=== PATIENT | female | born 1995 | race Hispanic/Latino ===

== ENCOUNTER 2017-12-13 10:52 | Day surgery (SDC) | payer SELFPAY ==
[2017-12-13] MEDS ORDERED: NA CHLORIDE 0.9% 1,000 ML ONE (11:29)
[2017-12-13] MEDS ORDERED: ONDANSETRON 4 MG/2 ML VIAL ONE ×2 (11:29→16:05)
[2017-12-13] MEDS ORDERED: MORPHINE 4 MG/ML SYR ONE (11:29)
[2017-12-13 11:55] LABS: Urine Blood TRACE (NEG); Urine Glucose NEGATIVE (NEG); Urine Protein TRACE (NEG); Urine Specific Gravity 1.025 (1.005-1.030)
[2017-12-13 12:09] LABS: Absolute Lymphocytes (CBC) 1.3 K/uL (0.7-4.9); Absolute Monocytes 0.8 K/uL (0.1-1.3); Absolute Neutrophil 16.6 K/uL (1.8-8.0); Basophils % 0.1 % (0-1.3); Eosinophils % 0.1 % (0-4.4); Hematocrit 41.5 % (36.0-45.0); Lymphocytes % 7.1 % (15.3-44.8); MCH 30.5 pg (27.0-35.0); MCV 88.3 fL (80-100); MPV 8.4 fL (7.6-11.3); Monocytes % 4.1 % (3.3-12.3)
[2017-12-13] MEDS ORDERED: METOCLOPRAMIDE 10 MG/2mL INJ ONE (12:18)
[2017-12-13 12:20] LABS: ALT/SGPT 29 U/L (12-78); AST/SGOT 16 U/L (15-37); Albumin 3.9 g/dL (3.4-5.0); Alkaline Phosphatase 75 U/L (45-117); BUN Blood Urea Nitrogen 12 mg/dL (7-18); Bicarbonate 22 mmol/L (21-32); Bilirubin Direct < 0.1 mg/dL (0-0.2); Bilirubin Total 0.4 mg/dL (0.2-1.0); Glucose Level 137 mg/dL (74-106); Lipase 124 U/L (73-393); Potassium 4.1 mmol/L (3.5-5.1); Protein, Total 8.1 g/dL (6.4-8.2); Sodium Level 139 mmol/L (136-145)
[2017-12-13 12:43] LABS: Blood Morphology Comment NOTED (NOT SEEN); Platelet Estimate ADEQ; Urine White Blood Cell Casts OK
[2017-12-13 12:44] LABS: Hypochromasia 1+; Stomatocytes 1+
--- NOTE | 2017-12-13 13:42 | RAD REPORT ---
EXAM DESCRIPTION: CT - Abdomen Pelvis W Contrast - 12/13/2017 1:17 pm CLINICAL HISTORY: Right lower quadrant pain and tenderness COMPARISON: None. TECHNIQUE: Biphasic, helical CT imaging of the abdomen and pelvis was performed following 100 ml non -ionic IV contrast. Oral contrast was given. All CT scans are performed using dose optimization technique as appropriate and may include automated exposure control or mA/KV adjustment according to patient size. FINDINGS: No suspicious findings in the lung bases. The liver, spleen, and pancreas show no suspicious findings. Gallbladder and biliary tree are also wi thout suspicious finding. Symmetric renal function is seen with no hydronephrosis or suspicious renal mass. No pyelonephritis o r acute renal parenchymal process. No urinary bladder abnormality. Uterus is normal in size and has an arcuate or less likely bicornuate configuration. Both ovaries are identified and normal. No fallopian tube dilatation. Trace free fluid in the cul-de-sac well within physiologic limits. No gastric dilatation or wall thickening. No dilated small bowel or focal small bowel abnormality. No colon acute finding. Sigmoid is redundant. The appendix is upper normal to minimally enlarged at 7-9 mm in diameter. There is no air within the lumen of the appendix which courses towards the posterior midline pelvis. No surrounding inflammatory stranding. Findings are equivocal for a very early appendicitis given the right lower quadrant histo ry. Patient has a few clustered mesenteric lymph nodes in the right lower quadrant. No free air or pneumatosis. No focal inflammatory stranding seen. No hernia, mass or bulky lymphad enopathy. No adrenal abnormality. No suspicious bony findings. IMPRESSION: The appendix is 7-9 mm in size and is minimally edematous. There is no surrounding infla mmatory stranding. Findings are equivocal for early appendicitis. Uterus and ovaries show no acute findings. No pyelonephritis or acute finding. No other abnormalit y seen that might explain a right lower quadrant pain pattern.
--- NOTE | 2017-12-13 14:00 | EDPHYS ---
Physician Documentation [facility] Name: Vonnie Porter Age: 22 yrs Sex: Female : 1995 Arrival Date: 12/13/2017 Time: 10:55 Bed 20 Private MD: ED Physician Tavon Grijalva HPI: 12/13 11:17 This 22 yrs old Female presents to ER via Wheelchair with complaints of jmm Abdominal Pain, Vomiting. 11:17 The patient presents with abdominal pain in the lower abdomen. Onset: The jmm symptoms/episode began/occurred acutely, this morning. The symptoms do not radiate. Associated signs and symptoms: Pertinent positives: vomiting. Modifying factors: The symptoms are alleviated by nothing, the symptoms are aggravated by. This is a 22 year old female with no chronic medical conditions that presents to the ED with lower abdominal pain with vomiting. LMP last week. Patient denies diarrhea, recent abx use, recent travel, or infectious exposure. . 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 - Social history:: Smoking status: Patient/guardian denies using tobacco. - Ebola Screening: : Patient negative for fever greater than or equal to 101.5 degrees Fahrenheit, and additional compatible Ebola Virus Disease symptoms Patient denies exposure to infectious person Patient denies travel to an Ebola-affected area in the 21 days before illness onset No symptoms or risks identified at this time. ROS: 12:01 Constitutional: Negative for fever, chills, and weight loss, Cardiovascular: Negative jmm for chest pain, palpitations, and edema, Respiratory: Negative for shortness of breath, cough, wheezing, and pleuritic chest pain. 12:01 Abdomen/GI: Positive for abdominal pain. 12:01 All other systems are negative. Exam: 12:01 Head/Face: atraumatic. Chest/axilla: Normal chest wall appearance and motion. jmm Cardiovascular: Regular rate and rhythm. No edema appreciated Respiratory: Normal respirations, no respiratory distress appreciated 12:01 Constitutional: The patient appears alert, awake, anxious, uncomfortable. 12:01 Abdomen/GI: Inspection: Bowel sounds: normal, Palpation: soft, mild abdominal tenderness, in the right lower quadrant and left lower quadrant. 12:01 Back: ROM is normal. 12:01 Skin: Appearance: Color: normal in color. 12:01 Neuro: Orientation: is normal, Mentation: is normal, Memory: is normal. 12:01 Psych: Behavior/mood is pleasant, cooperative. Vital Signs: 11:05 BP 126 / 62; Pulse 79; Resp 18; Temp 97.2; Pulse Ox 100% on R/A; Weight 61.23 kg; aj Height 5 ft. 1 in. (154.94 cm); 12:41 BP 136 / 95; Pulse 81; Resp 18; Pulse Ox 99% on R/A; jb1 13:40 BP 133 / 84; Pulse 68; Resp 18; Pulse Ox 100% on R/A; Pain 4/10; em 11:05 Body Mass Index 25.51 (61.23 kg, 154.94 cm) aj MDM: 11:17 Patient medically screened. [facility] 13:58 Data reviewed: vital signs, nurses notes. Counseling: I had a detailed discussion with brian the patient and/or guardian regarding: the historical points, exam findings, and any diagnostic results supporting the discharge/admit diagnosis, lab results, radiology results, the need for further work-up and treatment in the hospital. ED course: I discussed the patient with Dr. Alvarez whom will see the patient in the ED. 12/13 11:18 Order name: Basic Metabolic Panel; Complete Time: 12:34 [facility] 12/13 11:18 Order name: CBC with Diff; Complete Time: 12:46 [facility] 12/13 11:18 Order name: Creatinine for Radiology; Complete Time: 12:34 [facility] 12/13 11:18 Order name: Hepatic Function; Complete Time: 12:34 [facility] 12/13 11:18 Order name: Lipase; Complete Time: 12:34 [facility] 12/13 11:28 Order name: Urine Dipstick--Ancillary (enter results); Complete Time: 12:02 12/13 11:28 Order name: Urine --Ancillary (enter results); Complete Time: 12:02 12/13 12:11 Order name: CBC Smear Scan; Complete Time: 12:46 [facility] 12/13 12:54 Order name: CT Abd/Pelvis - W/Contrast; Complete Time: 13:45 [facility] 12/13 11:18 Order name: IV Saline Lock; Complete Time: 11:29 [facility] 12/13 11:18 Order name: Labs collected and sent; Complete Time: 11:29 [facility] 12/13 11:19 Order name: Urine Test (obtain specimen); Complete Time: 11:28 [facility] 12/13 11:20 Order name: Urine Dipstick-Ancillary (obtain specimen); Complete Time: 11:28 [facility] Administered Medications: 11:48 Drug: morphine 4 mg Route: IVP; Site: right antecubital; iw 12:17 Follow up: Response: No adverse reaction; Pain is decreased em 11:48 Drug: Zofran 4 mg Route: IVP; Site: right antecubital; iw 12:17 Follow up: Response: No adverse reaction; Nausea unchanged em 11:49 Drug: NS 0.9% 1000 ml Route: IV; Rate: 1000 ml; Site: right antecubital; iw 12:30 Follow up: IV Status: Completed infusion; IV Intake: 1000ml em 12:28 Drug: Reglan 10 mg Route: IVP; Site: right antecubital; iw 14:03 Follow up: Response: No adverse reaction; Nausea is decreased em 14:13 Drug: Ciprofloxacin 400 mg Volume: 200 ml; Route: IVPB; Infused Over: 60 mins; Site: em right antecubital; 14:13 Follow up: IV Status: Infusion continued upon admission em 14:13 Drug: Flagyl 500 mg Volume: 100 ml; Route: IVPB; Rate: 200 ml/hr; Infused Over: 30 em mins; Site: right antecubital; 14:13 Follow up: IV Status: Infusion continued upon admission em Disposition: 12/14 13:08 Co-signature as Attending Physician, Tavon Grijalva MD I agree with the assessment and kdr plan of care. Disposition: 12/13/17 13:59 Hospitalization ordered by Trent Alvarez for Observation. Preliminary diagnosis is Acute appendicitis. - Bed requested for DAY SURGERY OTHER. - Status is Observation. em - Condition is Stable. - Problem is new. - Symptoms are unchanged. UTI on Admission? No Signatures: Dispatcher [employer] Junie Diane RN RN aj Rittger, Kevin, MD MD [facility] Mickail, Choco, PA PA [facility] Naeem Ely, [employer] em Esther Mujica, RN RN iw Candace Arias Corrections: (The following items were deleted from the chart) 12/13 14:04 13:59 Hospitalization Ordered by rTent Alvarez MD for Observation. Preliminary diagnosis eb is Acute appendicitis. Bed requested for DAY SURGERY OTHER. Status is Observation. Condition is Stable. Problem is new. Symptoms are unchanged. UTI on Admission? No. [facility] 14:16 14:04 12/13/2017 13:59 Hospitalization Ordered by Trent Alvarez MD for Observation. em Preliminary diagnosis is Acute appendicitis. Bed requested for DAY SURGERY OTHER. Status is Observation. Condition is Stable. Problem is new. Symptoms are unchanged. UTI on Admission? No. eb
--- NOTE | 2017-12-13 14:00 | ER ---
Nurse's Notes [facility] Name: Vonnie Porter Age: 22 yrs Sex: Female : 1995 Arrival Date: 12/13/2017 Time: 10:55 Bed 20 Private MD: Diagnosis: Acute appendicitis Presentation: 12/13 11:04 Presenting complaint: Patient states: Abdominal pain that started suddenly this AM with aj nausea and vomiting. Patient reports tenderness to RLQ with palpation. Transition of care: patient was not received from another setting of care. Onset of symptoms was December 13, 2017. Risk Assessment: Do you want to hurt yourself or someone else? Patient reports no desire to harm self or others. Initial Sepsis Screen: Does the patient meet any 2 criteria? No. Patient's initial sepsis screen is negative. Does the patient have a suspected source of infection? No. Patient's initial sepsis screen is negative. Care prior to arrival: None. 11:04 Method Of Arrival: Wheelchair 11:04 Acuity: HECTOR 3 aj Triage Assessment: 11:05 General: Appears in no apparent distress. uncomfortable, Behavior is anxious, crying. aj Pain: Complains of pain in right lower quadrant. Neuro: Level of Consciousness is awake, alert, obeys commands, Oriented to person, place, time, situation, Appropriate for age. Respiratory: Airway is patent Respiratory effort is even, unlabored, Respiratory pattern is hyperventilation. GI: Abdomen is flat, non-distended, Reports lower abdominal pain, nausea, vomiting. Derm: Skin is intact, is healthy with good turgor, Skin is pink, warm \T\ dry. normal. 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 - Social history:: Smoking status: Patient/guardian denies using tobacco. - Ebola Screening: : Patient negative for fever greater than or equal to 101.5 degrees Fahrenheit, and additional compatible Ebola Virus Disease symptoms Patient denies exposure to infectious person Patient denies travel to an Ebola-affected area in the 21 days before illness onset No symptoms or risks identified at this time. Screenin:30 Abuse screen: Denies threats or abuse. Nutritional screening: No deficits noted. em Tuberculosis screening: No symptoms or risk factors identified. Fall Risk None identified. Assessment: 11:30 General: Appears in no apparent distress. uncomfortable, Behavior is cooperative, em crying, Denies fever. Pain: Complains of pain in left lower quadrant and right lower quadrant Pain currently is 8 out of 10 on a pain scale. Neuro: Level of Consciousness is awake, alert, obeys commands, Oriented to person, place, time, situation. Cardiovascular: Capillary refill < 3 seconds Patient's skin is warm and dry. Respiratory: Airway is patent Respiratory effort is even, unlabored, Respiratory pattern is regular, symmetrical. GI: Abdomen is flat, Bowel sounds present X 4 quads. Abd is soft X 4 quads Abdomen is tender to palpation in right lower quadrant and left lower quadrant Reports nausea, vomiting, Patient currently denies diarrhea. : Urine is clear, Denies burning with urination. EENT: No signs and/or symptoms were reported regarding the EENT system. Derm: Skin is intact, Skin is pink, warm \T\ dry. Musculoskeletal: Range of motion: intact in all extremities. 11:45 General: The previous assessment is accurate, call light remains within reach. . ss 12:15 Reassessment: Patient appears in no apparent distress at this time. Patient and/or em family updated on plan of care and expected duration. Pain level reassessed. Patient is alert, oriented x 3, equal unlabored respirations, skin warm/dry/pink. rates pain 4/10, c/o nausea, provider notified Patient states feeling better. 12:53 Reassessment: Patient appears in no apparent distress at this time. Patient and/or em family updated on plan of care and expected duration. Pain level reassessed. Patient is alert, oriented x 3, equal unlabored respirations, skin warm/dry/pink. nausea improved Patient states feeling better. Patient states symptoms have improved. 13:10 Reassessment: Patient appears in no apparent distress at this time. Patient and/or em family updated on plan of care and expected duration. Pain level reassessed. Patient is alert, oriented x 3, equal unlabored respirations, skin warm/dry/pink. pt wheeled to CT via wheelchair. 14:15 Reassessment: Patient appears in no apparent distress at this time. Patient and/or em family updated on plan of care and expected duration. Pain level reassessed. Patient is alert, oriented x 3, equal unlabored respirations, skin warm/dry/pink. Patient states feeling better. Vital Signs: 11:05 BP 126 / 62; Pulse 79; Resp 18; Temp 97.2; Pulse Ox 100% on R/A; Weight 61.23 kg; aj Height 5 ft. 1 in. (154.94 cm); 12:41 BP 136 / 95; Pulse 81; Resp 18; Pulse Ox 99% on R/A; jb1 13:40 BP 133 / 84; Pulse 68; Resp 18; Pulse Ox 100% on R/A; Pain 4/10; em 11:05 Body Mass Index 25.51 (61.23 kg, 154.94 cm) aj ED Course: 10:55 Patient arrived in ED. rg4 11:04 Triage completed. aj 11:05 Arm band placed on right wrist. Patient placed in an exam room. aj 11:10 Choco Hayes PA is PHCP. jm 11:10 Tavon Grijalva MD is Attending Physician. jmm 11:10 Naeem Ely LVN is Primary Nurse. em 11:30 Patient has correct armband on for positive identification. Placed in gown. Bed in low em position. Call light in reach. Adult w/ patient. 11:30 No provider procedures requiring assistance completed. Initial lab(s) drawn, by me, em sent to lab. Inserted saline lock: 20 gauge in right antecubital area, using aseptic technique. Blood collected. 13:15 CT completed. Patient tolerated procedure well. Patient moved to CT via wheelchair. vr Patient moved back from CT. 13:17 CT Abd/Pelvis - W/Contrast In Process Unspecified. EDMS 13:59 Trent Alvarez MD is Hospitalizing Provider. jmm 14:15 IV discontinued, intact, bleeding controlled, No redness/swelling at site. Pressure em dressing applied. Administered Medications: 11:48 Drug: morphine 4 mg Route: IVP; Site: right antecubital; iw 12:17 Follow up: Response: No adverse reaction; Pain is decreased em 11:48 Drug: Zofran 4 mg Route: IVP; Site: right antecubital; iw 12:17 Follow up: Response: No adverse reaction; Nausea unchanged em 11:49 Drug: NS 0.9% 1000 ml Route: IV; Rate: 1000 ml; Site: right antecubital; iw 12:30 Follow up: IV Status: Completed infusion; IV Intake: 1000ml em 12:28 Drug: Reglan 10 mg Route: IVP; Site: right antecubital; iw 14:03 Follow up: Response: No adverse reaction; Nausea is decreased em 14:13 Drug: Ciprofloxacin 400 mg Volume: 200 ml; Route: IVPB; Infused Over: 60 mins; Site: em right antecubital; 14:13 Follow up: IV Status: Infusion continued upon admission em 14:13 Drug: Flagyl 500 mg Volume: 100 ml; Route: IVPB; Rate: 200 ml/hr; Infused Over: 30 em mins; Site: right antecubital; 14:13 Follow up: IV Status: Infusion continued upon admission em Intake: 12:30 IV: 1000ml; Total: 1000ml. em Outcome: 13:59 Decision to Hospitalize by Provider. jmm 14:15 Admitted to OR accompanied by nurse, via stretcher, with chart. em 14:15 Condition: good 14:15 Instructed on the need for admit, Demonstrated understanding of instructions. 14:16 Patient left the ED. em Signatures: Dispatcher [employer] Doroteo Elizondo jb1 Junie Medina, RN Choco Louis PA PA jmm Munoz, Edgar, PROTOTYPE SEWER PROTOTYPE SEWER em Esther Mujica RN RN iw Smirch, Shelby, RN RN ss Davis, Victoria vr Garcia, Rubi 4
[2017-12-13] MEDS ORDERED: Ciprofloxacin 200mg IV 200 MG/100 ML IV.SOLN. IV ONE (14:12)
[2017-12-13] MEDS ORDERED: METRONIDAZOLE 500mg IVPB 500 MG/100 ML BAG IV ONE (14:13)
[2017-12-13] MEDS ORDERED: Ringers Lactate 1,000 ML IV ONE ×2 (14:19→15:54)
[2017-12-13] MEDS ORDERED: PROPOFOL 200 MG/20 ML VIAL IV ONE (14:37)
[2017-12-13] MEDS ORDERED: MIDAZOLAM HCL 2 MG/2 ML INJ ONE (14:37)
[2017-12-13] MEDS ORDERED: ROCURONIUM 50 MG/5 ML VIAL IV ONE (14:37)
[2017-12-13] MEDS ORDERED: LIDOCAINE 2% MPF 5 ML VIAL ONE (14:37)
[2017-12-13] MEDS ORDERED: FENTANYL CITR 100 MCG/2 ML ONE ×2 (14:37→15:07)
[2017-12-13] MEDS ORDERED: BUPIVACA 0.5%/EPI 0.0005%/PF 30 ML VIAL ONE (14:38)
[2017-12-13] MEDS ORDERED: SUCCINYLCHOLINE 20 MG/ML (10 ML) IV ONE (14:48)
[2017-12-13] MEDS ORDERED: GLYCOPYRROLATE 0.2 MG/ML SYR ONE (14:52)
--- NOTE | 2017-12-13 15:32 | P.OP ---
Preoperative diagnosis: Acute Appendicitis Postoperative diagnosis: Acute Appendicitis Primary procedure: Laparoscopic Appendectomy Anesthesia: GETA + Local Estimated blood loss: <10cc Specimen: Vermiform Appendix Findings: Acute Non-Perforated Appendicitis Complications: None Transferred to: Recovery Room Condition: Good
[2017-12-13] MEDS: MEPERIDINE HCL 50 MG/ML AMP ONE ×2 (15:59→16:03)
[2017-12-13] MEDS ORDERED: HYDROCODONE/APAP 5/325 MG TAB ONE (16:38)
--- NOTE | 2017-12-14 01:38 | HP ---
Date of Admission: 12/13/2017 Brief Hpi: The patient is a 22-year-old female who presents to the hospital with approximately 1-day history of abdominal pain in the periumbilical, now right lower quadrant area. She states the pain is sharp stabbing in the right lower quadrant predominantly. She has not had similar episodes before in the past. No sick contacts. No recent travel. No new food exposures, exacerbated by movement a nd pressure. Past Medical History: Negative. Past Surgical History: Negative. Allergies: NO KNOWN DRUG ALLERGIES. Medications: None. Social History: She denies smoking, recreational drug use. She does drink alcohol on occasion. Review of Systems: A 10-point review of systems other than HPI, denies. Physical Examination: General: At the time of my examination, she is awake, alert, and oriented. Psychiatric: She is appropriate, conversive. HEENT: She is normocephalic. Sclerae anicteric. Mucous membranes are moist. Oropharynx is clear. Neck: Supple. No JVD. Chest: Normal expansion, excursion. Cardiovascular: Regular rate and rhythm. Pulmonary: Clear to auscultation bilaterally. Abdomen: Soft with positive right lower quadrant tenderness to palpation. There is some focal perit onitis in this area. No hernias appreciated. Extremities: No clubbing, cyanosis, or edema. Skin: Warm and dry. Laboratory Data: Laboratory exam reveals a white blood count of 18.7, hemoglobin is 14.4, hematocrit of 41.5, platelet count is 410, and neutrophils 88.6%. Her sodium is 139, potassium 4.1, chloride 1 07, carbon dioxide 22, BUN 12, creatinine 0.8, glucose is 137, total bilirubin 0.4, AST 16, ALT 29, a lk phos 75, lipase is 124. UA is 2+ ketones only and trace blood. Negative urine test. S he had a CT scan performed of the abdomen and pelvis, officially read by Dr. Loco as the appendix is 7 to 9 mm in size, is minimally edematous. There is no surrounding inflammatory stranding. Findi ngs are equivocal for early appendicitis. Uterus and ovaries show no acute findings. No other abnor mality that might explain the right lower quadrant pain. Assessment And Plan: This is a 22-year-old female, who comes in with signs and symptoms consistent w ith early acute appendicitis. 1.IV fluid hydration. 2.Antibiotic coverage. 3.I have explained the risks, benefits, and alternatives of laparoscopic, possible open appendectomy including, but not limited to bleeding, infection, damage to surrounding tissue, need for further op erating procedures. The patient agrees to proceed as indicated. DC/BRIONNA Voice ID: [id number]
--- NOTE | 2017-12-14 02:46 | OP ---
Date of Procedure: 12/13/2017 Surgeon: Trent Alvarez MD, Preoperative Diagnosis: Acute appendicitis. Postoperative Diagnosis: Acute appendicitis. Procedure Performed: Laparoscopic appendectomy. Anesthesia: General endotracheal plus local with 0.5% Marcaine without epinephrine. Estimated Blood Loss: Less than 2 cc. Specimen: Vermiform appendix. Findings: Acute nonperforated appendicitis. Complications: None. Disposition: Transferred to recovery room in good condition. Procedure In Detail: After informed consent was obtained, patient was brought to the operating room, prepped and draped in usual sterile fashion. After adequate anesthesia was achieved, an infraumbili chandler area was anesthetized with 0.25% Marcaine, sharply incised, and a 5-mm trocar was introduced in t he abdomen without evidence of complication. Insufflation was obtained 15 mmHg at this time and the area was inspected. There was no injury to vital structures upon entry into the abdomen. The additi onal trocar site was chosen in the suprapubic region. This was similarly anesthetized, sharply incis ed. A 5-mm trocar was introduced into the abdomen without evidence of complication. The umbilical t rocar was then up-sized to 12 mm under direct visualization without evidence of complication. Additi onal trocar site was chosen in the left lower quadrant. This was similarly anesthetized, sharply inc ised, and a 5-mm trocar was introduced into the abdomen without evidence of complication. The patien t was then positioned in the head up right-side up position. Ratcheted grasper was used to identify the appendix in the right lower quadrant. The appendix was grasped, elevated, and found to be consis tent with acute appendicitis. A mesoappendiceal window was created with the [place] retractor. End o JOSSIE 35 blue load fired across the base of the appendix with good approximation of the tissues. The LigaSure device was then used to take the mesoappendix down with good approximation of the tissues a nd no additional need for hemostatic maneuvers. The appendix was placed in the EndoCatch bag and rem mukesh with the umbilical trocar. Insufflation obtained at this time. The area was inspected. The st aple line was found to be in good anatomic position. There was no bleeding from any structures. The abdomen was then copiously irrigated and dried including the pelvic structures which were found to b e in good anatomic position as well without any significant free fluid. The patient was then positio inderjit in a neutral position. The umbilical trocar was removed and the umbilical trocar site closed usi ng a [place]-Mel suture passer with 0 Vicryl in interrupted fashion with good approximation of ti ssues. The abdomen was then completely desufflated under direct visualization without evidence of co mplication. All trocars were then removed. All skin incisions were copiously irrigated and closed w ith 4-0 Monocryl in a running fashion and Dermabond placed over top. The patient tolerated the proce dure well without evidence of complication and was transferred to the PACU in good condition. All co unts were correct at the end of the case. DC/BRIONNA Voice ID: [id number] Report ID: [id number]
== END 2017-12-13 17:30 | disposition home or self-care (01) ==
LOC: ER 10:52 → OR 13:57
PROVIDERS: ATTEND Surgery
PROC: 0DTJ4ZZ Resection of Appendix, Percutaneous Endoscopic Approach (ICD-10-PCS; principal; 2017-12-13 14:00)
DX: K35.80 Unspecified acute appendicitis (principal)
CPT/HCPCS: 36415; 74177; 80048; 80076; 81003; 81025; 83690; 85025; 88304; 96361; 96374; 96375; 99285; J0330; J0744; J2175; J2250; J2405; J2765; J3010; J7030; Q9967